=== PATIENT | male | born 1990 | race Caucasian/White ===

== ENCOUNTER 2020-05-29 12:05 | Emergency (ER) | payer OTHER ==
[~2020-05-29] VITALS: Ht 162.6 cm; Wt 70.0 kg
[2020-05-29 13:27] LABS: BASOPHILS % (AUTO) 0.3 % (0-1); EOSINOPHILS % (AUTO) 0.3 % (0-6); HEMATOCRIT 43.7 % (42.0-52.0); HEMOGLOBIN 14.9 g/dl (14.0-17.9); LYMPHOCYTES # (AUTO) 1.4 X10'3 (1.1-4.8); LYMPHOCYTES % (AUTO) 13.3 % (21-51); MEAN CORPUSCULAR HEMOGLOBIN 32.2 PG (27.0-31.0); MEAN CORPUSCULAR HGB CONC 34.1 g/dL (33.0-36.5); MEAN CORPUSCULAR VOLUME 94.4 FL (78-98); MEAN PLATELET VOLUME 8.2 FL (7.4-10.4); MONOCYTES # (AUTO) 0.5 X10'3 (0-0.9); NEUTROPHILS # (AUTO) 8.6 X10'3 (1.8-7.7); NEUTROPHILS % (AUTO) 81.1 % (42-75); PLATELET COUNT 302 X10'3 (140-440); RED BLOOD COUNT 4.63 X10'6 (4.70-6.10); RED CELL DISTRIBUTION WIDTH 13.5 % (11.5-14.5); WHITE BLOOD COUNT 10.6 X10'3 (4.5-11.0)
[2020-05-29 13:28] LABS: CLARITY,URINE CLEAR (Clear); COLOR,URINE STRAW (Yellow); GLUCOSE, URINE NEGATIVE (Neg); KETONES,URINE NEGATIVE (Neg); NITRITES, URINE NEGATIVE (Neg); OCCULT BLOOD,URINE NEGATIVE (Neg); PROTEIN,URINE NEGATIVE (Neg); UROBILINOGEN,URINE 0.2 E.U/dL (0.2-1.0)
[2020-05-29 13:30] LABS: LEUKOCYTE ESTERASE ,URINE NEGATIVE (Neg)
[2020-05-29 13:33] LABS: UA COLLECTION TYPE CLN CATCH MIDSTREAM
[2020-05-29 13:42] LABS: ALANINE AMINOTRANSFERASE 28 U/L (12-78); ALBUMIN 3.9 G/DL (3.4-5.0); ALBUMIN/GLOBULIN RATIO 1.2 (1.1-1.5); ALKALINE PHOSPHATASE 80 IU/L (46-116); ANION GAP 7 (8-16); ASPARTATE AMINO TRANSFERASE 16 U/L (10-37); BILIRUBIN,TOTAL 0.7 MG/DL (0.1-1.0); BLOOD UREA NITROGEN 8 MG/DL (7-18); BUN/CREATININE RATIO 9.1 (5.4-32.0); CALCIUM 8.8 MG/DL (8.5-10.1); CHLORIDE 105 MMOL/L (99-107); CREATININE 0.88 MG/DL (0.60-1.10); GLUCOSE 105 MG/DL (70-104); LIPASE 71 U/L (73-393); POTASSIUM 3.9 MMOL/L (3.5-5.1); SODIUM 140 MMOL/L (135-145); TOTAL CARBON DIOXIDE 28.3 MMOL/L (24-32); TOTAL PROTEIN 7.2 G/DL (6.4-8.2); eGFR > 90 ML/MIN
[2020-05-29] MEDS ORDERED: pantoprazole 40mg Tablet.DR PO ONE (14:40)
[2020-05-29] MEDS ORDERED: mag hydrox/Alum hydrox/simeth 30ml oral suspension PO ONE (14:40)
[2020-05-29] MEDS ORDERED: LIDOcaine Viscous 15ml cup MM ONE (14:40)
[2020-05-29] MEDS ORDERED: PANT-47 PO (14:42)
[2020-05-29 15:54] VITALS: BP 154/98
== END 2020-05-29 15:56 | disposition home or self-care (01) ==
LOC: ER 12:05
DX: R10.13 Epigastric pain (principal); R11.2 Nausea with vomiting, unspecified; Z79.899 Other long term (current) drug therapy
CPT/HCPCS: 36415; 80053; 81003; 83690; 85025; 99283

== ENCOUNTER 2020-09-16 16:17 | Emergency (ER) | payer OTHER ==
[~2020-09-16] VITALS: Ht 160 cm; Wt 65.9 kg
[~2020-09-16 16:17] MED LIST: PANT-47 PO
[2020-09-16 19:23] VITALS: BP 156/90
== END 2020-09-16 19:22 | disposition home or self-care (01) ==
LOC: ER 16:19
DX: R42 Dizziness and giddiness (principal); I10 Essential (primary) hypertension; Z79.899 Other long term (current) drug therapy
CPT/HCPCS: 93005; 99283

== ENCOUNTER 2020-10-09 17:07 | Emergency (ER) | payer OTHER ==
[~2020-10-09] VITALS: Ht 160 cm; Wt 76.9 kg
[2020-10-09 18:23] LABS: BASOPHILS # (AUTO) 0.1 X10'3 (0-0.2); BASOPHILS % (AUTO) 0.6 % (0-1); EOSINOPHILS # (AUTO) 0.1 X10'3 (0-0.9); EOSINOPHILS % (AUTO) 1.3 % (0-6); HEMATOCRIT 44.2 % (42.0-52.0); HEMOGLOBIN 15.1 g/dl (14.0-17.9); LYMPHOCYTES # (AUTO) 2.3 X10'3 (1.1-4.8); LYMPHOCYTES % (AUTO) 23.7 % (21-51); MEAN CORPUSCULAR HEMOGLOBIN 32.4 PG (27.0-31.0); MEAN CORPUSCULAR HGB CONC 34.2 g/dL (33.0-36.5); MEAN CORPUSCULAR VOLUME 94.8 FL (78-98); MEAN PLATELET VOLUME 8.3 FL (7.4-10.4); MONOCYTES # (AUTO) 0.9 X10'3 (0-0.9); MONOCYTES % (AUTO) 9.6 % (2-12); NEUTROPHILS # (AUTO) 6.3 X10'3 (1.8-7.7); NEUTROPHILS % (AUTO) 64.8 % (42-75); PLATELET COUNT 250 X10'3 (140-440); RED BLOOD COUNT 4.66 X10'6 (4.70-6.10); RED CELL DISTRIBUTION WIDTH 13.5 % (11.5-14.5); WHITE BLOOD COUNT 9.7 X10'3 (4.5-11.0)
[2020-10-09 18:37] LABS: ALANINE AMINOTRANSFERASE 24 U/L (12-78); ALBUMIN/GLOBULIN RATIO 1.2 (1.1-1.5); ALKALINE PHOSPHATASE 81 IU/L (46-116); ANION GAP 10 (8-16); ASPARTATE AMINO TRANSFERASE 18 U/L (10-37); BILIRUBIN,TOTAL 1.1 MG/DL (0.1-1.0); BLOOD UREA NITROGEN 10 MG/DL (7-18); CALCIUM 8.6 MG/DL (8.5-10.1); CHLORIDE 104 MMOL/L (99-107); CREATININE 0.91 MG/DL (0.60-1.10); GLUCOSE 89 MG/DL (70-104); POTASSIUM 3.4 MMOL/L (3.5-5.1); SODIUM 140 MMOL/L (135-145); TOTAL CARBON DIOXIDE 25.8 MMOL/L (24-32); TOTAL PROTEIN 7.4 G/DL (6.4-8.2); eGFR > 90 ML/MIN
[2020-10-09] MEDS ORDERED: potassium Cl 20 mEq SR tablet PO ONE (21:50)
[2020-10-09 21:54] VITALS: BP 131/85
== END 2020-10-09 22:10 | disposition home or self-care (01) ==
LOC: ER 17:07
DX: G89.29 Other chronic pain (principal); R07.89 Other chest pain; I10 Essential (primary) hypertension; F17.200 Nicotine dependence, unspecified, uncomplicated; F12.90 Cannabis use, unspecified, uncomplicated; F15.90 Other stimulant use, unspecified, uncomplicated; Z79.899 Other long term (current) drug therapy
CPT/HCPCS: 36415; 71045; 80053; 83880; 84484; 85025; 93005; 99285

== ENCOUNTER 2021-10-29 20:29 | Emergency (ER) | payer OTHER ==
[~2021-10-29] VITALS: Ht 160 cm; Wt 68.2 kg
[~2021-10-29 20:29] MED LIST changes: +LORA-269 PO
[2021-10-29] MEDS ORDERED: gabapentin 300mg capsule PO ONE (21:25)
[2021-10-29] MEDS ORDERED: diazepam inj 5 MG/ML inj. IV ONE (21:25)
[2021-10-29] MEDS ORDERED: chlordiazePOXIDE 25mg capsule PO ONE (21:25)
[2021-10-29] MEDS ORDERED: normal saline 1000ML IV soln IVB ONE (21:25)
[2021-10-29 21:53] LABS: BASOPHILS # (AUTO) 0.1 X10'3 (0-0.2); BASOPHILS % (AUTO) 1.4 % (0-1); EOSINOPHILS # (AUTO) 0.1 X10'3 (0-0.9); EOSINOPHILS % (AUTO) 1.8 % (0-6); HEMATOCRIT 44.2 % (42.0-52.0); HEMOGLOBIN 15.3 g/dl (14.0-17.9); LYMPHOCYTES # (AUTO) 1.9 X10'3 (1.1-4.8); LYMPHOCYTES % (AUTO) 41.2 % (21-51); MEAN CORPUSCULAR HEMOGLOBIN 35.2 PG (27.0-31.0); MEAN CORPUSCULAR HGB CONC 34.7 g/dL (33.0-36.5); MEAN CORPUSCULAR VOLUME 101.4 FL (78-98); MEAN PLATELET VOLUME 8.1 FL (7.4-10.4); MONOCYTES # (AUTO) 0.6 X10'3 (0-0.9); MONOCYTES % (AUTO) 12.5 % (2-12); NEUTROPHILS % (AUTO) 43.1 % (42-75); PLATELET COUNT 159 X10'3 (140-440); RED BLOOD COUNT 4.35 X10'6 (4.70-6.10); RED CELL DISTRIBUTION WIDTH 13.7 % (11.5-14.5); WHITE BLOOD COUNT 4.6 X10'3 (4.5-11.0)
[2021-10-29 22:00] VITALS: BP 154/103
[2021-10-29 22:07] LABS: ALANINE AMINOTRANSFERASE 83 U/L (12-78); ALBUMIN 3.3 G/DL (3.4-5.0); ALKALINE PHOSPHATASE 88 IU/L (46-116); ANION GAP 12 (8-16); ASPARTATE AMINO TRANSFERASE 89 U/L (10-37); BILIRUBIN,TOTAL 0.5 MG/DL (0.1-1.0); BLOOD UREA NITROGEN 6 MG/DL (7-18); BUN/CREATININE RATIO 6.9 (5.4-32.0); CALCIUM 7.8 MG/DL (8.5-10.1); CHLORIDE 110 MMOL/L (99-107); CREATININE 0.87 MG/DL (0.60-1.10); ETHANOL 0.292 GM/DL (0.0-0.010); GLUCOSE 89 MG/DL (70-104); POTASSIUM 3.2 MMOL/L (3.5-5.1); SODIUM 147 MMOL/L (135-145); TOTAL CARBON DIOXIDE 24.7 MMOL/L (24-32); TOTAL PROTEIN 6.6 G/DL (6.4-8.2); eGFR > 90 ML/MIN
[2021-10-29] MEDS ORDERED: POTASSIUM BICARB 20meq eff tab 20 MEQ TABLET.EFF PO ONE (23:15)
[2021-10-29] MEDS ORDERED: GABA-534 PO (23:24)
--- NOTE | 2021-10-29 23:33 | NUR ---
[facility] CALLED FOR PT TO GO HOME @9930 ETA 10MIN
== END 2021-10-29 23:48 | disposition home or self-care (01) ==
LOC: ER 20:30
DX: F10.20 Alcohol dependence, uncomplicated (principal); F12.10 Cannabis abuse, uncomplicated; F15.10 Other stimulant abuse, uncomplicated; I10 Essential (primary) hypertension; F41.9 Anxiety disorder, unspecified; Z79.899 Other long term (current) drug therapy; Y90.9 Presence of alcohol in blood, level not specified
CPT/HCPCS: 36415; 80053; 80320; 85025; 96374; 99284; J3360; J7030

== ENCOUNTER 2025-04-04 14:09 | Emergency (ER) | payer OTHER ==
[~2025-04-04] VITALS: Ht 160 cm; Wt 62.1 kg
[~2025-04-04 14:09] MED LIST changes: +GABA-535 PO
[2025-04-04 14:16] VITALS: TEMP 98.2
[2025-04-04] MEDS ORDERED: IBUP-1986 PO (16:25)
[2025-04-04] MEDS ORDERED: ACET-1025 PO (16:25)
[2025-04-04] MEDS ORDERED: AMOX875T10 PO (16:25)
--- NOTE | 2025-04-04 16:25 | Physician Documentation ---
HPI ~ General Chief Complaint: Tooth Problem Stated Complaint: TOOTH PAIN Time Seen by MD: 14:36 OK to notify your PCP?: Yes [facility] Source: patient, RN/MD History of Present Illness HPI Comment Patient is seen today with complaints of dental pain of right lower molars. Patient admits to sensation of pressure in significant dental pain. Patient states he took some Tylenol earlier today with mild improvement. Patient denies any fevers or chills in his no other concern or complaint at this time. Medication Reconciliation Allergies: Coded Allergies: No Known Allergies (Unverified , 10/08/21) Scheduled Gabapentin (Gabapentin), 1 CAP PO DIRECTED Pantoprazole Sodium (PROTONIX tablet), 1 TAB PO DAILY Scheduled PRN Lorazepam (Ativan), 1 TAB PO Q8H PRN for for anxiety/agitation Past Medical History Past Medical History: Hypertension, *PSYCH*, Anxiety Past Surgical History: noncontributory Smoking Status: Current every day smoker Alcohol Use: Heavy Drug Use: marijuana, methamphetamine Lives In: Home Occupation: employed Review of Systems Constitutional: Denies: chills, fever, weakness Eyes: Denies: pain, blurred vision ENT: Denies: ear pain, nose pain, throat pain, mouth pain Respiratory: Denies: cough, shortness of breath Cardiovascular: Denies: chest pain, palpitations Gastrointestinal: Denies: abdominal pain, nausea, vomiting Genitourinary: Denies: burning, dysuria Male Genitalia: Denies: penile discharge, testicular pain Neurological: Denies: headache, dizziness Musculoskeletal: Denies: pain, swelling Integumentary: Denies: rash, lesions Allergic/Immunologic: Denies: hives, itching Hematologic/Lymphatic: Denies: no symptoms reported Psychiatric: Denies: depression, anxiety Physical Exam Vital Signs: Temperature: 98.2, Source: Oral, Heart Rate: 100, Respiratory Rate: 16, BP: 164/83, Pulse Oximetry: 99, Weight: 62.100 Oxygen Flow Rate: 0 Physical Exam General: Awake and Alert, no acute distress. HEENT: Patient has severe dental decay with multiple dental fractures without any sign of periapical abscess but with some swelling of the right lower jaw. Neck: Supple without masses and tenderness. Resp: Unlabored. Lungs clear to auscultation bilaterally. Heart: Regular Rate and rhythm, normal S1 and S2 without murmur, rub or gallop. Abdomen: Soft and non tender no organomegaly Extremities: No cyanosis,clubbing or edema. Skin: Warm and Dry. Progress Results/Orders Results/Orders Completed Orders - LARON ULRICH Amoxicillin Capsule (Trimox Capsule) (04/04/25 15:53) Ketorolac Trometh 30mg/Ml Vial (Toradol (04/04/25 15:53) Acetaminophen 325mg Tablet (Tylenol Tabl (04/04/25 15:53) Vital Signs 04/04/25 14:16 Temp 98.2 Pulse 100 Resp 16 B/P (MAP) 164/83 Pulse Ox 99 O2 Flow Rate 0 Medical Decision Making Additional information obtaine: N/A Findings Patient is seen today with complaints of dental pain of right lower molars. P atient admits to sensation of pressure in significant dental pain. Patient states he took some Tylenol earlier today with mild improvement. Patient denies any fevers or chills in his no other concern or complaint at this time. Patient was given Toradol 30 mg IM, Tylenol 975 mg by mouth, and amoxicillin 1000 mg by mouth with prescription of ibuprofen Tylenol and amoxicillin to be taken as directed sent to patient's pharmacy. Patient will return to ED with any worsening, concerning or changing symptoms. Patient was strongly recommended to make appointment with dentist for further eval and treatment and consult. Differential Dx:Considerations: Include: Facial Cellulitis, Periapical abscess, Peridontal abscess, Tooth avulsion, Tooth eruption, Tooth Fracture Departure Disposition: HOME / SELF CARE / HOMELESS Impression: Primary Impression: Dental caries Additional Impression: Dental abscess Condition: Improved Discharge Instructions: Dental Abscess Additional Instructions: Patient was given Toradol 30 mg IM, Tylenol 975 mg by mouth, and amoxicillin 1000 mg by mouth with prescription of ibuprofen Tylenol and amoxicillin to be taken as directed sent to patient's pharmacy. Patient will return to ED with any worsening, concerning or changing symptoms. Patient was strongly recommended to make appointment with dentist for further eval and treatment and consult. Referrals: NO PRIMARY CARE PROVIDER (PCP) Prescriptions Amoxicillin Trihydrate (Amoxicillin) 875 Mg Tablet 1 TAB PO Q12H for 10 Days, #20 TAB Prov: LARON ULRICH 04/04/25 Acetaminophen (Tylenol Extra Strength) 500 Mg Tablet 2 TAB PO Q6H PRN PRN for pain or fever for 7 Days, #56 TAB Prov: LARON ULRICH 04/04/25 Ibuprofen (Ibuprofen) 800 Mg Tablet 1 TAB PO Q8H for pain for 10 Days, #30 TAB 0 Refills Prov: LARON ULRICH 04/04/25 Signature Scribe Signature: No scribe Attestation: No scribe LARON ULRICH Apr 04, 2025 16:25
[2025-04-04] MEDS: ketorolac trometh 30MG/ML vial 30 MG/ML VIAL IV STA (16:33)
[2025-04-04 16:37] VITALS: BP 134/78; PULSE 89; RESP 18; O2SAT 99
== END 2025-04-04 16:39 | disposition home or self-care (01) ==
LOC: ER 14:10
DX: K02.9 Dental caries, unspecified (principal); K04.7 Periapical abscess without sinus; I10 Essential (primary) hypertension; F12.90 Cannabis use, unspecified, uncomplicated; F15.90 Other stimulant use, unspecified, uncomplicated; F17.200 Nicotine dependence, unspecified, uncomplicated
CPT/HCPCS: 96374; 99283; J1885